=== PATIENT | female | born 1985 | race African-American/Black ===

== ENCOUNTER 2022-09-14 18:21 | Emergency (ER) | payer OTHER ==
[~2022-09-14] VITALS: Ht 177.8 cm; Wt 81.6 kg
--- NOTE | 2022-09-14 19:23 | NUR ---
DR. SOSA AT PT'S BEDSIDE FOR EVAL
[2022-09-14 19:25] VITALS: BP 132/84
[2022-09-14] MEDS ORDERED: IBUP-1953 PO (19:42)
[2022-09-14] MEDS ORDERED: ACETAMINOPHEN ES 500 MG TABLET ONE (19:59)
[2022-09-14] MEDS ORDERED: ACETAMINOPHEN ES 500 MG TABLET PO ONE (20:00)
== END 2022-09-14 21:44 | disposition home or self-care (01) ==
LOC: ER 18:41
DX: S90.32XA Contusion of left foot, initial encounter (principal); S90.31XA Contusion of right foot, initial encounter; W10.9XXA Fall (on) (from) unspecified stairs and steps, initial encounter; Y93.89 Activity, other specified; Y92.89 Other specified places as the place of occurrence of the external cause; Y99.8 Other external cause status